=== PATIENT | male | born 1950 | race Caucasian/White ===

== ENCOUNTER 2022-07-16 10:26 | Emergency (ER) | payer MEDICARE, SELFPAY ==
[2022-07-16 10:54] VITALS: BP 118/71; PULSE 83; RESP 20; TEMP 37; O2SAT 100
--- NOTE | 2022-07-16 12:45 | ED.URI ---
HPI - URI/Sore Throat General Chief Complaint: Upper Respiratory Infection Stated Complaint: Cough/Sore Throat Time Seen by Provider: 07/16/22 12:45 Source: patient, RN notes reviewed and old records reviewed Mode of arrival: ambulatory Limitations: no limitations History of Present Illness HPI Narrative: 72 year old male presents to [facility] with on e week duration of runny nose, cough several days with body aches starting last night. Patient reports that he has taken some cold medication and some left over codeine cough syrup for his symptoms. Patient denies any known fevers, some chills and sweats reported with body aches. Patient reports cough harsh and non-productive with no shortness of breath or noted wheezing. MD elicited complaint: cough, sore throat, rhinorrhea and other (body aches) Onset (ago): week(s) (1 week nasal congestion cough several days body aches started last night) Able to tolerate fluids by mouth: Yes Treatments prior to arrival: cold medicine and other (cough medication) Related Data Home Medications Medication Instructions Recorded Confirmed celecoxib 200 mg capsule mg 07/16/22 levothyroxine 50 mcg tablet mcg 07/16/22 metoprolol succinate 25 mg mg PO 07/16/22 tablet,extended release 24 hr semaglutide 0.25 mg or 0.5 mg (2 mg subcut 07/16/22 mg/1.5 mL) subcutaneous pen injector (Lemko) simvastatin 20 mg tablet mg 07/16/22 tamsulosin 0.4 mg capsule mg PO 07/16/22 tamsulosin 0.4 mg capsule mg PO 07/16/22 tizanidine 2 mg tablet mg 07/16/22 Allergies Allergy/AdvReac Type Severity Reaction Status Date / Time No Known Allergies Allergy Unverified 08/24/17 12:16 Review of Systems Review of Systems: CONSTITUTIONAL:Reports malaise, chills, sweats, or fever. EYES: Denies visual changes, redness, or discharge. ENT: Reports rhinorrhea, congestion,no sinus pain, otalgia positive for sore throat. CARDIOVASCULAR: Denies chest pain, palpitations, or edema. RESPIRATORY: Reports cough.? Denies dyspnea. GASTROINTESTINAL: Denies abdominal pain, nausea, vomiting, diarrhea SKIN: Denies rash or itching. MUSCULOSKELETAL: Reports myalgia. NEUROLOGIC: Denies headache. All systems reviewed & are unremarkable except as noted in HPI and below PMFSH Past Medical History Medical History (Updated 07/21/22 @ 11:44 by Dari Morgan NP) Arthritis Elevated cholesterol History of BPH Hypertension Hypothyroid Mitral valve prolapse Surgical History Surgical History (Updated 07/21/22 @ 11:38 by Dari Morgan NP) History of bilateral knee replacement History of hip replacement Hx of cholecystectomy Social History Social History (Updated 07/21/22 @ 11:37 by Dari Morgan NP) Smoking status: Never smoker Alcohol intake: current Alcohol use details: rare social Substance use type: does not use Living arrangements: with family Gender identity (if verbalized by the patient): Male Comments At time of signature, agree with nursing past medical, surgical, social and family history. There is no relevant family history pertinent to the presenting complaint Exam Narrative: GENERAL: Well-appearing, well-nourished, and in no acute distress. HEAD: Normocephalic EYES: PERRLA, conjunctivae clear ENT: Nares clear, turbinates edematous and erythematous, light yellow discharge. Mucous membranes moist. TM pearly morgan with dull light reflex bilaterally; no tragal tenderness. Oropharynx erythematous without lesions. Tonsils not enlarged and without exudate, no drooling, no hoarseness, no trismus, uvula midline. NECK: Supple. No lymphadenopathy CHEST: Clear to auscultation, breath sounds equal. No wheezing, rhonchi, rales, or stridor. No respiratory distress, speaks in full sentences.cough, SAO2 100% on room air HEART: Regular rate and rhythm. No murmur heard. SKIN: Warm, dry, no rash. NEURO: Alert and oriented x3. PSYCH: Normal mood and affect Cou
== END 2022-07-16 13:26 | disposition home or self-care (01) ==
PROVIDERS: Emergency Provider Registered Nurse; PCP Family Medicine
DX: J11.1 Influenza due to unidentified influenza virus with other respiratory manifestations (principal)
CPT/HCPCS: 87804; 99203; G0463